=== PATIENT | female | born 1990 | race Caucasian/White ===

== ENCOUNTER 2024-09-27 13:28 | Outpatient (AMB) | payer OTHER, SELFPAY ==
[2024-09-27 13:33] VITALS: BP 98/64; PULSE 79; RESP 16; TEMP 37; O2SAT 99; BMI 24.7
--- NOTE | 2024-09-27 13:33 | A.OFFPC_ITS ---
Vital Signs 09/27/24 13:33 Height 5 ft 4 in Weight 144 lb 3.2 oz BMI 24.7 BP 98/64 Blood Pressure Location Lt brachial Position Sitting Respiration 16 Pulse 79 Pulse Source Pulse Oximeter Temp 98.6 F Temp Source Oral Pulse Oximetry (%) 99 Oxygen Delivery Method Room Air Intake Visit Reasons: WEIGHER OPERATOR establish care Intake Note: Patient is a new patient here to establish care. Transferring care from [facility] in [place], [place]. Medical records have not been requested and have not been received. Analytical Sciences Director Required: No Accompanied by: Partner Allergies Penicillins Allergy (Unknown, Verified 09/27/24 13:52) Hives Sulfa (Sulfonamide Antibiotics) Allergy (Unknown, Verified 09/27/24 13:52) Hives Medication List - Last Reconciled 09/27/24 by EL Moody No Known Home Meds Tobacco use date assessed: 09/27/24 Dental Screening Dental Screen Date: 09/27/24 Did you have a dental visit in the last 12 months?: Yes Did you have a dental problem in the last 6 months where you did not have access to dental care?: No Was dental information given to patient?: Patient has dentist HPI WEIGHER OPERATOR establish care HPI Details Previous PCP:[facility] in [place], [place] Last visit: Last PE: About years ago Specialist: RADHAGYN: needs a referral Past medical history: Eating disorder, bulimia and anorexia, bipolar, Surgical Hx: Medications: Family HX: Problem: The patient is a 33-year-old female presenting with hip pain. The pain is located in the lower abdomen near the pelvic area and is linked to slow transit constipation, causing significant discomfort and sometimes requiring dietary adjustments to manage the symptoms. Per the patient health records, she had a copper IUD that was placed in 2015 and was removed in 2019. Ever since, the patient has been experiencing pelvic pain that she felt like coincides with ov ulation. Will place on OBGYN referral and order a KUB to further evaluate. The patient has been diagnosed with obsessive-compulsive disorder (OCD) and attention-deficit/hyperactivity disorder (ADHD), and is currently working with a therapist to explore treatment options, including medication. Reports that she is looking for psychiatrist, she reached out to service [facility] and the she looking for groups OCD. A previous diagnosis of bipolar disorder was managed with lamotrigine, which was discontinued due to adverse effects, resulting in improved sleep patterns. The patient reports that her currently therapist Aleida does not belief that she had bipolar and help her to titrate of the medication. The patient has a history of anorexia, now in remission, and experiences premenstrual dysphoric disorder (PMDD), affecting her mood pre-menstrually. A family history of skin cancer necessitates a dermatology referral for preventative screening. Right lower abdomen patient, closed to the right groin area, was ruled to be related to slow transit time and her stool is backing up. Reports taking miralax every day. Been working with therapist over year, Aleida Content from [facility]. Have not seen a psychiatrist for several years. [facility] Medical History (Updated 10/22/24 @ 22:18 by EL Moody) PMDD (premenstrual dysphoric disorder) Anorexia Bulimia Bipolar 2 disorder Surgical History No pertinent past surgical history Family History Mother Lymphoma Thyroid cancer Skin cancer Other FH: mental illness FHx: obesity FHx: type 2 diabetes mellitus Family history of substance abuse Social History Household Members: Significant Other Housing: Apartment Alcohol intake: never Patient Tobacco Use Status: Never used Tobacco e-Cigarette/Vaping Use: Currently Using Substance Use Type: Marijuana service: No Current occupational status: unemployed Cognitive needs: No Hearing needs: No Vision needs: No Female Reproductive History Menstrual Age of Menarche: 11 Duration of menses: 3-5 days Date of last menstrual period: 09/16/24 control method: none Questionnaire PHQ-9 Over the last 2 weeks, how often have you been bothered by any of the following problems? 1. Little interest or pleasure in doing things: several days 2. Feeling down, depressed, or hopeless: several days 3. Trouble falling or staying asleep, or sleeping too much: not at all 4. Feeling tired or having little energy: several days 5. Poor appetite or overeating: not at all 6. Feeling bad about yourself - or that you are a failure or have let yourself or your family down: several days 7. Trouble concentrating on things, such as reading the newspaper or watching television: nearly every day 8. Moving or speaking so slowly that other people could have noticed. Or the opposite - being so fidgety or restless that you have been moving around a lot more than usual: not at all 9. Thoughts that you would be better off or of hurting yourself in some way: not at all Total score: 7 Depression Screening Interpretation: Positive Depression Screening Done: Yes 07701 - PHQ-9 Billing: Yes Source: Developed by Drs. Ap Stark, Susanna Nelson, Kirill Whittington and colleagues, with an educational wanda from [employer]. Thrive Questionnaire Date Thrive assessed: 09/27/24 I am a: Patient What is your living situation today?: I have a steady place to live Within the past 12 months, did the food you bought not last and you didn't have the money to get more?: Never true Within the past 12 months, did you worry whether your food would run out before you got money to buy more?: Never true Do you have trouble paying for medicines?: No Do you have trouble getting transportation to medical appointments?: No Do you have trouble paying your heating and electricity bill?: No Do you have trouble taking care of your child, family member or friend?: No Do you have trouble with day-to-day activities such as bathing, preparing meals, shopping, managing finances, etc.?: No Are you currently unemployed and looking for a job?: No Are you interested in more education?: No Please select the resources that you would like help with: None Currently or been in a relationship where the following occur: No concerns reported THRIVE Score: 0 AUDIT C Alcohol Use Questionnaire (AUDIT-C) 1. How often do you have a drink containing alcohol?: Never Total Score: 0 Score Reviewed/Action Taken: No JAMIR-7 AMB Questionnaire JAMIR-7 Date JAMIR - 7 assessed: 09/27/24 Feeling nervous, anxious, or on edge: 3 = Nearly every day Not being able to stop or control worryin = Nearly every day Worrying too much about different things: 1 = Several days Trouble relaxin = Several days Being so restless that it is hard to sit still: 0 = Not at all Becoming easily annoyed or irritable: 1 = Several days Feeling afraid as if something awful might happen: 3 = Nearly every day Total JAMIR-7 score (0-4 normal; 5-9 mild; 10-14 moderate; 15-21 severe): 12 Source: Developed by Drs. Ap Stark, Susanna Nelson, Kirill Whittington and colleagues, with an educational wanda from [employer]. JAMIR-7 Assessment Billing JAMIR-7 Assessment Tool: JAMIR-7 Assessment 14315 Review of Systems Const Denies headache(s) Eyes Denies loss of vision ENT Denies vertigo, Denies dizziness, Denies headache(s) and Denies sore throat Card Denies chest pain, Denies leg edema and Denies lightheadedness Resp Denies cough, Denies hemoptysis and Denies wheezing GI Reports abdominal pain (right lower quadrant), Denies melena, Reports constipation, Denies diarrhea and Denies vomiting Denies urinary frequency, Denies dysuria and Denies urinary urgency Musc Denies arthralgias, Denies joint swelling, Denies numbness and Denies tingling Neuro Denies Abnormal speech present, Denies behavioral changes, Denies vertigo, Denies dizziness, Denies headache(s), Denies loss of vision, Denies memory loss, Denies numbness and Denies tingling Psych Denies anxiety, Denies behavioral changes, Denies depression, Denies memory loss and Denies panic attacks Osito/Lymph Denies easy bleeding and Denies easy bruising Aller/Immun Denies wheezing Physical exam (Primary Care) Vital Signs: Last Vital Signs Temp 98.6 F 09/27/24 13:33 Pulse 79 09/27/24 13:33 Resp 16 09/27/24 13:33 BP 98/64 09/27/24 13:33 Pulse Ox 99 09/27/24 13:33 Oxygen Delivery Method Room Air 09/27/24 13:33 BMI result Body Mass Index 24.7 Tobacco/Smoking Status: Tobacco use Status Tobacco use date assessed 09/27/24 09/27/24 13:50 Patient Tobacco Use Status Never used Tobacco 09/27/24 13:50 e-Cigarette/Vaping Use Currently Using 09/27/24 13:50 PHQ-9: PHQ-9 Score PHQ-9: Total score 7 10/22/24 13:36 Depression Screening Interpretation: Positive Thrive Assessment: Date of Thrive Assessment Date Thrive assessed 09/27/24 09/27/24 13:50 Currently or been in a relationship where the following occur: No concerns reported Const General: healthy appearing, no acute distress, alert and awake Nutritional Appearance: well nourished Orientation/consciousness: oriented to person, oriented to place and oriented to time HENMT Ears: TM's normal bilaterally General nose exam: Normal nasal mucous membranes and turbinates present Eyes Conjunctivae: conjunctivae normal Sclerae: sclerae normal Pupils: Equal, round and reactive pupils present Neck Neck: Yes no lymphadenopathy and Yes no JVD Thyroid: Thyroid normal Carotids: no bruits Resp Effort & Inspection: normal respiratory effort and not tachypneic Auscultation: no crackles, no rales, no rhonchi and no wheezes Cardio Rate: regular rate Rhythm: regular rhythm Heart sounds: no murmurs and normal S1 and S2 GI Palpation (GI): Soft to palpation, Tenderness to palpation present (GI) in the RLQ (close to right groin area), no hepatomegaly and no splenomegaly Auscultation: normal bowel sounds General: Yes no CVA tenderness Back/Spine/Pelvis Back: no CVA tenderness Skin General skin exam: no rashes or lesions noted and dry skin Neuro General: oriented to person, oriented to place and oriented to time Cranial nerves: Yes Equal, round and reactive pupils present Speech: No Abnormal speech present Gait exam (Neuro): Normal gait present Motor exam (neuro): no tremor noted Extrem Right upper extremity: full ROM Left upper extremity: full ROM Right lower extremity: full ROM; no edema Left lower extremity: full ROM; no edema Psych Mental Status: mental status grossly normal Speech and movement: Normal speech and movement present Affect: normal affect Attitude: cooperative Thought process: Normal thought process present Coding Level of Care Code New Pt Level 3 (80832) Diagnoses Family history of skin cancer Z80.8 Right lower quadrant abdominal pain R10.31 Abdominal location: right lower quadrant Attention deficit hyperactivity disorder (ADHD), unspecified ADHD type F90.9 Attention deficit-hyperactivity disorder type: unspecified Bipolar 2 disorder F31.81 Slow transit constipation K59.01 Constipation type: slow transit constipation Additional Codes JAMIR-7 Assessment Billing - JAMIR-7 Assessment Tool: JAMIR-7 Assessment 79660 ([id number]) PHQ-9 - 06136 - PHQ-9 Billing: Yes ([id number]) Time Spent (min) 35 Assessment & Plan Assessment & Plan (1) Family history of skin cancer: Code(s): Z80.8 - Family history of malignant neoplasm of other organs or systems Category: Medical Plan: Dermatology referral placed (2) Abdominal pain: Code(s): R10.9 - Unspecified abdominal pain Category: Medical Qualifiers: Abdominal location: right lower quadrant Qualified Code(s): R10.31 - Right lower quadrant pain Plan: Patient reports that pain started after her IUD was removed. Reports a KUB showed stool burden due to low transit and it was suspected that this, plus possibly scar tissue from the IUD removal was causing her pain in the right lower abdomen. KUB ordered. The patient would like to be referred to GI. An obgyn referral was placed to rule out this possibility. (3) ADHD: Code(s): F90.9 - Attention-deficit hyperactivity disorder, unspecified type Category: Medical Qualifiers: Attention deficit-hyperactivity disorder type: unspecified Qualified Code(s): F90.9 - Attention-deficit hyperactivity disorder, unspecified type Plan: The patient reports that she is actively looking for psychiatrist. She is currently awaiting for a return call. She is also looking of OCD group to be a part of. (4) Bipolar 2 disorder: Code(s): F31.81 - Bipolar II disorder Category: Medical Plan: The patient reports that she used to be on lamotrigine 100mg daily and was able to be successfully weaned off this medication. (5) Constipation: Code(s): K59.00 - Constipation, unspecified Category: Medical Qualifiers: Constipation type: slow transit constipation Qualified Code(s): K59.01 - Slow transit constipation Plan: The patient reports that this has been better. She reports using miralax daily with positive effect Orders: Orders Complete Blood Count Auto Diff 09/27/24 Z00.00 - Encounter for general adult medical examination without abnormal findings Lipid Panel 09/27/24 Z00.00 - Encounter for general adult medical examination without abnormal findings TSH reflex Free T4 09/27/24 Z00.00 - Encounter for general adult medical examination without abnormal findings Vitamin D 25-OH Total 09/27/24 Z00.00 - Encounter for general adult medical examination without abnormal findings Comprehensive [place]. Panel Fast 09/27/24 Z00.00 - Encounter for general adult medical examination without abnormal findings UA CC w/rflx Micro + Cult 09/27/24 Z00.00 - Encounter for general adult medical examination without abnormal findings
--- OUTSIDE RECORDS SUMMARY | 2024-09-27 14:39 | XMS_ITS | Clinical Summary ---
Author Organization [facility] Address [address] [place] [address] Care Team Providers Care Cuff Folder Name Role Phone Unavailable Primary Care Provider Unavailabl e Source Comments PLEASE NOTE, if this patient is a minor, it may be UNLAWFUL to discuss sensitive information that is contained in these records (such as FAMILY PLANNING, MENTAL HEALTH or SUBSTANCE ABUSE) with the minor patient's parent or other person without the patient's specific authorization.[facility] Allergies Active Allergy Reactions Criticality Noted Date Comments Cephalosporins Rash Low 09/03/2022 Penicillin Rash Low 09/03/2022 Penicillin G Hives 09/17/2022 Sulfa (Sulfonamide Antibiotics) 08/10 Medications No known medications Social History Tobacco Use Types Packs/Day Years Used Date Smoking Tobacco: Never Smokeless Tobacco: Never Tobacco Cessation:Counseling Given: Not Answered Social Connections Answer Date Recorded Connectedness 0 12/24/2023 Financial Resource Strain Answer Date R ecorded Financial Resource Strain 0 2022 Stress Answer Date Recorded Stress 0 09/09/2022 Physical Activity Answer Date Recorded Physical Activity 0 09/09/2022 Food Insecurity Answer Date Recorded Food 0 01/05/2024 Transportation Needs Answer Date Record ed Transportation 0 09/09/2022 Housing Stability Answer Date Recorded Housing 0 09/09/2022 Safety and Environment Answer Date Rodrigo rded Safety 0 09/09/2022 Utilities Answer Date Recorded Utilities 0 09/09/2022 Employment Answer Date Recorded Stress 0 12/24/2023 Comments Unknown Sex and Gender Information Value Date Recorded Sex Assigned at Not on file Legal Sex Female 9:55 AM PDT Gender Identity Not on file Sexual Orientation Not on file Last Filed Vital Signs Vital Sign Reading Time Taken Comments Blood Pressure 99/61 10/07/2023 10:04 AM PDT Pulse 66 10/07/2023 10:04 AM PDT Temperature - - Respiratory Rate - - Oxygen Saturation - - Inhaled Oxygen Concentration - - Weight - - Height - - Body Mass Index - - Plan of Treatment Health Maintenance Due Date Last Done Comments Anxiety Screening 1988 Dental Perio Charting 1988 Diabetes Screening 1988 HPV Screening 1988 Hepatitis C Screening 1988 Pap + HPV 1988 HIV Screening 12/08/2003 Relationship Safety Screening/Counseling 12/08/2003 Imm-DTaP/Tdap/Td (1 - Tdap) 12/08/2007 Imm-Hepatitis B (1 of 3 - 19 + 3-dose series) 12/08/2007 Cervical Cancer Screening 2009 Pap Smear 2009 Syphilis Screening 04/12/2020 [id number] ( season) 2023 Alcohol and Drug Screen 04/11/2024 Depression Annual Screen 04/11/2024 Tobacco Screening 09/22/2024 09/23/2023 Dental BW 09/24/2024 09/23/2023, 09/09/2022 Dental Examination 09/24/2024 09/23/2023, 09/09/2022 Dental Prophy 10/08/2024 10/07/2023 Imm-Influenza (Season Ended) 2024 Hypertension Screening (#1) 10/06/2026 Dental FMX/Pano 09/24/2028 09/23/2023 Cervical Ablation/Cold-Knife Conization Discontinued Cervical Cryotherapy Discontinued Colposcopy Discontinued Endometrial Biopsy Discontinued Excision/Leep Discontinued HPV Genotyping Discontinued Vaginal Pap Discontinued Vulvoscopy Discontinued Procedures Procedure Name Priority Date/Time Associated Diagnosis Comments PROPHYLAXIS - ADULT Routine 10/07/2023 1 0:00 AM PDT Visit for dental examination PANORAMIC RADIOGRAPHIC IMAGE Routine 09/23/2023 3:15 PM PDT Visit for dental examination BITEWINGS - FOUR RADIOGRAPHIC IMAGES Routine 09/23/2023 3:15 PM PDT Visit for dental examination PERIODIC ORAL EVALUATION ESTABLISHED PATIENT Routine 09/23/2023 3:15 PM PDT Visit for dental examination from Last 3 Months or Most Recently Relevant to Health Maintenance Insurance [place]ID [place] DENTAL Member Subscriber Plan / Payer (Ef fective 2022-Present) Name:Lyn Yadav Relation to Subscriber:Self Name:Lyn Yadav Payer ID:[id number] Group ID:[id number] Type:Medicaid non[place] Address: [address] [address]
== END 2024-09-27 14:34 | disposition home or self-care (01) ==
LOC: HO.HMCH 13:28
DX: Z80.8 Family history of malignant neoplasm of other organs or systems (principal); R10.31 Right lower quadrant pain; F90.9 Attention-deficit hyperactivity disorder, unspecified type; F31.81 Bipolar II disorder; K59.01 Slow transit constipation

== ENCOUNTER → 2024-09-27 13:28 | Outpatient (BNVA) | payer OTHER, SELFPAY | DX: M25.551 Pain in right hip (principal); R10.2 Pelvic and perineal pain; F42.9 Obsessive-compulsive disorder, unspecified; F90.9 Attention-deficit hyperactivity disorder, unspecified type; F31.81 Bipolar II disorder; R10.31 Right lower quadrant pain; K59.01 Slow transit constipation; Z80.8 Family history of malignant neoplasm of other organs or systems | CPT/HCPCS: 96127; 99202 ==

== ENCOUNTER 2024-10-26 10:54 | Outpatient (REF) | payer OTHER, SELFPAY ==
--- NOTE | ~2024-10-26 | XR_ITS ---
EXAMINATION: XR ABDOMEN KUB CLINICAL INDICATION: R10.9 - Unspecified abdominal pain COMPARISON: None available. TECHNIQUE: AP view of the abdomen. FINDINGS: The bowel gas pattern is normal with no evidence of ileus or obstruction. Calcification right hemipelvis is likely a phlebolith. Moderate stool in colon obscures the kidneys. XR/XR KUB IMPRESSION: Unremarkable examination. Electronically signed by: Lizandro Bird MD 10/26/2024 11:49 AM EDT
[2024-10-26 11:14] LABS: MANUAL DIFF FLAG NO
--- OUTSIDE RECORDS SUMMARY | 2024-10-26 11:31 | XMS_ITS | Clinical Summary ---
Author Organization [facility] Address [address] [place] [address] Care Team Providers Care Almond Paste Molder Name Role Phone Unavailable Primary Care Provider [...] C Screening 1988 Pap + HPV 1988 Tobacco Screening 1988 HIV Screening 12/08/2003 Relationship Safety Screening/Counseling 12/08/2003 Imm-DTaP/Tdap/Td (1 - Tdap) 12/08/2007 Imm-Hepatitis B (1 of 3 - 19 + 3-dose series) 12/08/2007 Cervical Cancer Screening 2009 Pap Smear 2009 Syphilis Screening 04/12/2020 [id number] ( season) 2023 Alcohol and Drug Screen 04/11/2024 Depression Annual Screen 04/11/2024 Dental BW 09/24/2024 09/23/2023, 09/09/2022 Dental Examination 09/24/2024 09/23/2023, 09/09/2022 Dental Prophy 10/08/2024 10/07/2023 Imm-Influenza (#1) 2024 Hypertension Screening (#1) 10/06/2026 Dental FMX/Pano [...] Yadav Relation to Subscriber:Self Name:Lyn Yadav Payer ID:[id number] Group ID:[id number] Type:Medicaid non-[place] Address: [facility] [address] [place] [address]
--- OUTSIDE RECORDS SUMMARY | 2024-10-26 11:31 | XMS_ITS | Encounter Summary ---
Author Organization [facility] Address [address] [place] [id number] Phone Care Team Providers Care Hydroblaster Name Role Phone Pcp, Unknown Primary Care Provider Unavailabl Vadim Tubbs FIXING MACHINE OPERATOR Primary Care Provider Pcp, Unknown Unavailable Unavailable Encounter Details Date Type Department Care Team (Late st Contact Info) Description 04/01/2024 Procedure Pass [facility], Ct Scan - [address] [address] Social History Tobacco Use Types Packs/Day Years Used Date Smoking Tobacco: Never Smokeless Tobacco: Never Alcohol Use Standard Drinks/Week Comments Not Currently 0 (1 standard drink = 0.6 oz pur e alcohol) Intimate Partner Violence Answer Date R ecorded Are you denied basic needs s uch as food, clothing, or medical care? No 04/01/2024 In the past 12 months have y ou been in a relationship with a person who hurts, threatens, or tries to control you? No 04/01/2024 Are you denied basic needs s uch as food, clothing, or medical care? No 04/01/2024 In the past 12 months have y ou been in a relationship with a person who hurts, threatens, or tries to control you? No 04/01/2024 Comments Unknown Sex and Gender Information Value Date Recorded Sex Assigned at Female 10/23/2024 3:06 PM EDT Legal Sex Female 3:06 PM EDT Gender Identity Non-binary 10/23/2024 3:06 PM EDT Sexual Orientation Queer 10/23/2024 3: 06 PM EDT documented as of this encounter Functional Status * Calculated C-SSRS Risk Score (Lifetime/Recent) Answer Date of Assessment Author No Risk Indicated 04/01/2024 5:20 PM Kim Mcgee, BENJAMÍN * [place] Suicide Severity Rating Scale (Screener/Recent Self-Report) Question Answer Date of Assessment Author 1. Wish to be (Past 1 Month) No 024 5:20 PM Kim Apodaca, RN 2. Non-Specific Active Suici ashley Thoughts (Past 1 Month) No 04/01/2024 5:20 PM Kim Apodaca, RN 6. Suicidal Behavior (Lifetime) No 4 5:20 PM Kim Apodaca, BENJAMÍN documented as of this encounter Plan of Treatment Not on file documented as of this encounter Visit Diagnoses Not on filedocumented in this encounter Care Teams Hydroblaster Relationship Specialty Start Date End Date Pcp, Unknown PCP - General 04/01/24 10/22/24 Vadim Nielsen NP [address] [place] [address] [address] [place] [address] PCP - General Nurse Practitioner 10/23/24 Pcp, Unknown 10/23/24 documented as of this encounter Additional Source Comments The information contained in this document represents components of the legal health record. It is not the complete legal health record.[facility]
[2024-10-26 11:40] LABS: Hematocrit 40.3 % (37.0-47.0); Hemoglobin 13.2 g/dl (12.0-16.0); Imm Gran Abs Auto 0.01 X10*3/uL (0.00-0.03); Imm Gran Pct Auto 0.2 % (0.0-0.4); Lymphocytes Absolute Auto 2.2 X10*3/uL (1.2-4.9); Mean Corpuscular HGB Conc 32.8 g/dl (31.0-35.0); Mean Corpuscular Hemoglobin 28.6 pg (27.0-33.0); Mean Corpuscular Volume 87.4 fL (80.0-98.0); NRBC Abs Auto 0.000 X10*3/uL (0.0-0.012); NRBC Pct Auto 0.0 /100WBC (0.0-0.2); Platelet Count 336 X10*3/uL (160-400); Red Blood Count 4.61 X10*6/uL (4.20-5.50); White Blood Count 5.8 X10*3/uL (4.8-10.8)
[2024-10-26 11:47] LABS: Appearance Urine Clear; Glucose Urine UA Negative (Negative); PH 6.0 (5.0-9.0); Specific Gravity - Urine <= 1.005 (1.005-1.025)
[2024-10-26 12:27] LABS: Alanine Aminotransferase 20 U/L (0-31); Albumin Level 5.0 g/dL (3.5-5.0); Alkaline Phosphatase 57 U/L (39-117); Anion Gap 12 (12-20); Aspartate Amino Transferase 20 U/L (5-31); Blood Urea Nitrogen 12 mg/dL (9-16); Calcium 9.1 mg/dL (8.4-10.2); Carbon Dioxide 25 mmol/L (22-29); Chloride 107 mmol/L (96-108); Cholesterol 166 mg/dL (<200); Estimated Glomerular Filt Rate > 60; HDL Cholesterol 66 mg/dL (>40); Potassium 4.4 mmol/L (3.3-5.1); Sodium 140 mmol/L (135-145); Total Protein 7.9 g/dL (6.5-8.0); Triglycerides 60 mg/dL (<150)
== END 2024-10-26 10:55 | disposition home or self-care (01) ==
LOC: HO.XRAY 10:54
DX: Z00.00 Encounter for general adult medical examination without abnormal findings (principal); R10.9 Unspecified abdominal pain
CPT/HCPCS: 36415; 74018; 80053; 80061; 81003; 82306; 84443; 85025

== ENCOUNTER → 2024-10-26 11:19 | Outpatient (BNV) | payer OTHER, SELFPAY | PROVIDERS: Visit Provider Radiology Diagnostic Radiology | DX: R10.9 Unspecified abdominal pain (principal) | CPT/HCPCS: 74018 ==

== ENCOUNTER 2024-10-31 08:33 | Outpatient (AMB) | payer OTHER, SELFPAY ==
--- NOTE | 2024-10-31 08:37 | A.OFFVIS_ITS ---
Vital Signs 10/31/24 08:38 Height 5 ft 4 in Weight 140 lb BMI 24.0 BP 110/74 Blood Pressure Location Lt brachial Position Sitting Pulse 70 Pulse Source Pulse Oximeter Pulse Oximetry (%) 99 Oxygen Delivery Method Room Air Intake Visit Reasons: abdominal pain KUB on 10/26 Intake Note: New pt for initial eval of abd pain. KUB 10/26. CC: C.O. RLQ pain originally, now B/L but still worse on the R side. Intermittent pain x2 years. Severity varies. Pt also complains of constipation + hemorrhoids with increasing frequency. Pt not sure if they will need general surgery consult for the hemorrhoids per their PCP. [employer] Tech Required: No Accompanied by: Self / Same As Patient Allergies Penicillins Allergy (Unknown, Verified 10/31/24 08:37) Hives Sulfa (Sulfonamide Antibiotics) Allergy (Unknown, Verified 10/31/24 08:37) Hives HPI HPI abdominal pain KUB on 10/26: Details: 33-year-old female with past medical history ADHD, abdominal pain, family history of skin cancer, constipation, bipolar disorder is here today for initial consultation the patient is accompanied here by her partner. Patient reports that her symptoms began about couple years ago or so. Patient is vegan. She reports that she is eating mostly vegetable and for protein she is eating legumens. Patient reports constipation and bloating. KUB was ordered by PCP and showed large amount of stool in her colon. Patient also reports hemorrhoids, states that they are active right now she is sitting on a donut pillow that she brought with her. Patient states that her PCP was thinking about referring her to General surgery about addressing her hemorrhoids. Patient reports that sometimes she feels very uncomfortable. Patient reports that she has pain in the right lower quadrant. Pain is usually worse at night time. Patient denies melena, hematochezia, unintentional weight loss or ribbon like stools. Patient denies any dyspepsia, dysphagia or odynophagia. [facility] Medical History PMDD (premenstrual dysphoric disorder) Anorexia Bulimia Bipolar 2 disorder Surgical History (Updated 10/31/24 @ 08:41 by ABY Jones) [place] teeth extracted No pertinent past surgical history Family History Mother Lymphoma Thyroid cancer Skin cancer Other FH: mental illness FHx: obesity FHx: type 2 diabetes mellitus Family history of substance abuse Social History Household Members: Significant Other Housing: Apartment Alcohol intake: never Patient Tobacco Use Status: Never used Tobacco e-Cigarette/Vaping Use: Currently Using Substance Use Type: Marijuana service: No Current occupational status: unemployed Cognitive needs: No Hearing needs: No Vision needs: No Female Reproductive History Menstrual Age of Menarche: 11 Review of Systems Const Denies weight gain and Denies weight loss ENT Reports no additional complaints, Denies dysphagia and Denies odynophagia Card Reports no additional complaints Resp Reports no additional complaints GI Reports abdominal pain (RLQ), Denies belching, Denies melena, Denies bloating, Denies change in bowel habits, Reports constipation, Denies dysphagia, Denies excessive flatus, Denies dyspepsia, Denies heartburn, Denies diarrhea, Denies loose stools, Denies nausea, Denies odynophagia and Denies vomiting Reports no additional complaints Musc Reports no additional complaints Neuro Reports no additional complaints Psych Reports no additional complaints Endo Reports no additional complaints Physical Exam Vital Signs: Last Vital Signs Pulse 70 10/31/24 08:38 BP 110/74 10/31/24 08:38 Pulse Ox 99 10/31/24 08:38 Oxygen Delivery Method Room Air 10/31/24 08:38 BMI result Body Mass Index 24.0 Const General: healthy appearing, no acute distress and well developed Nutritional Appearance: well nourished Orientation/consciousness: patient oriented x3 Resp Effort & Inspection: normal respiratory effort, able to speak in complete sentences, no tracheal deviation and symmetric chest movement Auscultation: clear to auscultation bilaterally Cardio Rate: regular rate GI Inspection: Yes normal to inspection and No distended Palpation (GI): Soft to palpation, not firm, nontender and No hepatosplenomegaly present Auscultation: normal bowel sounds General: Yes no CVA tenderness Back/Spine/Pelvis Back: no CVA tenderness Skin General skin exam: elasticity normal, turgor normal and dry skin Neuro General: patient oriented x3 Psych Appearance: grossly normal Mental Status: mental status grossly normal Results Reviewed Results Reviewed: KUB 10/26/2024 FINDINGS: The bowel gas pattern is normal with no evidence of ileus or obstruction. Calcification right hemipelvis is likely a phlebolith. Moderate stool in colon obscures the kidneys. Assessment & Plan Assessment & Plan (1) Constipation: Code(s): K59.00 - Constipation, unspecified Category: Medical Qualifiers: Constipation type: slow transit constipation Qualified Code(s): K59.01 - Slow transit constipation (2) Abdominal pain: Code(s): R10.9 - Unspecified abdominal pain Category: Medical Qualifiers: Abdominal location: right lower quadrant Qualified Code(s): R10.31 - Right lower quadrant pain (3) Hemorrhoid: Code(s): K64.9 - Unspecified hemorrhoids Qualifiers: Hemorrhoid type: unspecified Qualified Code(s): K64.9 - Unspecified hemorrhoids Plan Referral to General surgery. Patient will walk over and make appointment. Patient will increase fiber try a low FODMAP diet. Possible if patient is not emptying her bowels well her pain could be related to gas trapping pain from all the legumens she is eating. Will send her script for simethicone to help. Use hydrocortisone. Sitz baths recommended. I will see patient in 3 months, sooner on as needed basis. She is agreeable to this plan and verbalizes understanding of instructions. She was given the opportunity to ask questions and all questions answered. Thank you for allowing me to participate in her care Orders: Referrals General Surgery Referral K64.9 - Unspecified hemorrhoids Medications: New simethicone (Gas Relief (simethicone)) 125 mg PO BID-TID PRN 90 tabs 3RF abdominal distention Coding Level of Care Code New Pt Level 4 (86408) Diagnoses Slow transit constipation K59.01 Constipation type: slow transit constipation Right lower quadrant abdominal pain R10.31 Abdominal location: right lower quadrant Hemorrhoids, unspecified hemorrhoid type K64.9 Hemorrhoid type: unspecified Time Spent (min) 45 Comment 35 minutes spent with patient and additional 10 minutes spent reviewing her records
[2024-10-31 08:38] VITALS: BP 110/74; PULSE 70; O2SAT 99; BMI 24.0
--- OUTSIDE RECORDS SUMMARY | 2024-10-31 08:49 | XMS_ITS | Encounter Summary ---
Author Organization [facility] Address [address] [place] [id number] Phone Care Team Providers Care Transfer And Pumphouse Operator Chief Name Role Phone Pcp, Unknown Primary Care Provider Unavailabl Vadim Tubbs RISK ENGINEER Primary Care Provider Pcp, Unknown Unavailable Unavailable Encounter Details Date Type Department Care Team (Late st Contact Info) Description 04/01/2024 Procedure Pass [facility], Ct Scan - [address] [address] Social History Tobacco Use Types Packs/Day Years [...] 04/01/2024 5:20 PM Kim Mcgee, BENJAMÍN * [place] Suicide Severity Rating Scale (Screener/Recent Self-Report) Question [...] on filedocumented in this encounter Care Teams Transfer And Pumphouse Operator Chief Relationship Specialty Start Date End Date Pcp, Unknown PCP - General 04/01/24 10/22/24 Vadim Nielsen NP [address] [place] [address] [address] [place] [address] PCP - General Nurse Practitioner 10/23/24 Pcp, Unknown 10/23/24 documented as of this encounter Additional Source Comments The information contained in this document represents components of the legal health record. It is not the complete legal health record.[facility]
--- OUTSIDE RECORDS SUMMARY | 2024-10-31 08:49 | XMS_ITS | Clinical Summary ---
Author Organization [facility] Address [address] [place] [address] Care Team Providers Care Marker Machine Attendant Name Role Phone Unavailable Primary Care Provider [...] 2009 Pap Smear 2009 Syphilis Screening 04/12/2020 [id number] ( season) 2023 Alcohol and Drug Screen [...] Yadav Relation to Subscriber:Self Name:Lyn Yadav Payer ID:[id number] Group ID:[id number] Type:Medicaid non-[place]P Address: [facility] [address] [place] [address]
== END 2024-10-31 09:19 | disposition home or self-care (01) ==
LOC: HO.HGI 08:34
PROVIDERS: Visit Provider Nurse Practitioner Family
DX: K59.01 Slow transit constipation (principal); R10.31 Right lower quadrant pain; K64.9 Unspecified hemorrhoids
CPT/HCPCS: 99204

== ENCOUNTER 2024-11-27 14:34 | Outpatient (AMB) | payer OTHER, SELFPAY ==
[2024-11-27 14:42] VITALS: BP 102/66; PULSE 64; RESP 18; O2SAT 96; BMI 24.1
--- NOTE | 2024-11-27 14:42 | A.OFFPC_ITS ---
Vital Signs 11/27/24 14:42 Height 5 ft 4 in Weight 140 lb 6 oz BMI 24.1 BP 102/66 Blood Pressure Location Lt brachial Position Sitting Respiration 18 Pulse 64 Pulse Source Pulse Oximeter Temp Source Temporal Artery Scan Pulse Oximetry (%) 96 Oxygen Delivery Method Room Air Intake Visit Reasons: pe Rose Grower Required: No Accompanied by: Boyfriend Allergies Penicillins Allergy (Unknown, Verified 11/27/24 15:35) Hives Sulfa (Sulfonamide Antibiotics) Allergy (Unknown, Verified 11/27/24 15:35) Hives Medication List - Last Reconciled 11/27/24 by EL Moody atomoxetine 25 mg PO DAILY hydrocortisone 2.5% appl topical DAILY semaglutide 0.25 mg subcut QWEEK simethicone (Gas Relief (simethicone)) 125 mg PO BID-TID PRN Tobacco use date assessed: 11/27/24 Dental Screening Dental Screen Date: 11/27/24 Did you have a dental visit in the last 12 months?: Yes Did you have a dental problem in the last 6 months where you did not have access to dental care?: No Was dental information given to patient?: Patient has dentist HPI pe HPI Details Dentist: UP to date Eye:Reports that she needs to schedule an eye exam Snellen: Right: Left: Corrected vision: reading glasses STI screening:n/a Colonoscopy:n/a Pap Smer: She is waiting to be connected with obgyn PHQ-9: Flu: up to date COVID: x2 Tdap:Reports having this within 5 years ago after going back to school Diet:Low fabmap diet Exercise: Reports that she is starting to walk again; she used to exercise a lot The patient is a 33-year-old female presenting for a routine wellness visit and management of gastrointestinal symptoms. The patient reports a history of gastrointestinal discomfort, primarily characterized by stomach and intestinal pain, which she attributes to Irritable Bowel Syndrome (IBS). She has been following a low FODMAP diet to manage her symptoms, which has been challenging due to dietary restrictions and the need for meal preparation. Despite these challenges, she notes an improvement in her symptoms when adhering to the diet. The patient has also identified lactose as a potential trigger for her symptoms, particularly when consuming fresh lactose-containing products like mozzarella or cream. She is hopeful that eliminating lactose will further alleviate her symp toms. In terms of preventative care, the patient has received two COVID-19 vaccinations and usually receives the influenza vaccine annually. She recalls receiving a tetanus booster within the last five years. The patient has not had an eye exam in over a year and plans to schedule one soon. [facility] Medical History PMDD (premenstrual dysphoric disorder) Anorexia Bulimia Bipolar 2 disorder Surgical History [place] teeth extracted No pertinent past surgical history Family History Mother Lymphoma Thyroid cancer Skin cancer Other FH: mental illness FHx: obesity FHx: type 2 diabetes mellitus Family history of substance abuse Social History Household Members: Significant Other Housing: Apartment Alcohol intake: never Patient Tobacco Use Status: Never used Tobacco e-Cigarette/Vaping Use: Currently Using Substance Use Type: Marijuana service: No Current occupational status: unemployed Cognitive needs: No Hearing needs: No Vision needs: No Female Reproductive History Menstrual Age of Menarche: 11 Questionnaire PHQ-9 Over the last 2 weeks, how often have you been bothered by any of the following problems? 1. Little interest or pleasure in doing things: several days 2. Feeling down, depressed, or hopeless: several days 3. Trouble falling or staying asleep, or sleeping too much: not at all 4. Feeling tired or having little energy: several days 5. Poor appetite or overeating: several days 6. Feeling bad about yourself - or that you are a failure or have let yourself or your family down: several days 7. Trouble concentrating on things, such as reading the newspaper or watching television: several days 8. Moving or speaking so slowly that other people could have noticed. Or the opposite - being so fidgety or restless that you have been moving around a lot more than usual: not at all 9. Thoughts that you would be better off or of hurting yourself in some way: not at all Total score: 6 Source: Developed by Drs. Ap Stark, Susanna Nelson, Kirill Whittington and colleagues, with an educational wanda from [employer]. Thrive Questionnaire Date Thrive assessed: 11/27/24 I am a: Patient What is your living situation today?: I have a steady place to live Within the past 12 months, did the food you bought not last and you didn't have the money to get more?: Never true Within the past 12 months, did you worry whether your food would run out before you got money to buy more?: Never true Do you have trouble paying for medicines?: No Do you have trouble getting transportation to medical appointments?: No Do you have trouble paying your heating and electricity bill?: No Do you have trouble taking care of your child, family member or friend?: No Do you have trouble with day-to-day activities such as bathing, preparing meals, shopping, managing finances, etc.?: No Are you currently unemployed and looking for a job?: I choose not to answer this question Are you interested in more education?: I choose not to answer this question Please select the resources that you would like help with: None Currently or been in a relationship where the following occur: No concerns reported THRIVE Score: 0 AUDIT C Alcohol Use Questionnaire (AUDIT-C) 1. How often do you have a drink containing alcohol?: 2-4 times a month 2. How many drinks containing alcohol do you have on a typical day when you are drinking?: 1 or 2 3. How often do you have six or more drinks on one occasion?: Never Total Score: 2 JAMIR-7 AMB Questionnaire JAMIR-7 Date JAMIR - 7 assessed: 11/27/24 Feeling nervous, anxious, or on edge: 1 = Several days Not being able to stop or control worryin = More than half the days Worrying too much about different things: 2 = More than half the days Trouble relaxin = More than half the days Being so restless that it is hard to sit still: 0 = Not at all Becoming easily annoyed or irritable: 1 = Several days Feeling afraid as if something awful might happen: 1 = Several days Total JAMIR-7 score (0-4 normal; 5-9 mild; 10-14 moderate; 15-21 severe): 9 Source: Developed by Drs. Ap Stark, Susanna Nelson, Kirill Whittington and colleagues, with an educational wanda from [employer]. Review of Systems Const Denies headache(s) Eyes Denies loss of vision ENT Denies vertigo, Denies dizziness, Denies headache(s) and Denies sore throat Card Denies chest pain, Denies leg edema and Denies lightheadedness Resp Denies cough, Denies hemoptysis and Denies wheezing GI Denies abdominal pain, Denies melena, Denies constipation, Denies diarrhea and Denies vomiting Denies urinary frequency, Denies dysuria and Denies urinary urgency Musc Denies arthralgias, Denies joint swelling, Denies numbness and Denies tingling Neuro Denies Abnormal speech present, Denies behavioral changes, Denies vertigo, Denies dizziness, Denies headache(s), Denies loss of vision, Denies memory loss, Denies numbness and Denies tingling Psych Denies anxiety, Denies behavioral changes, Denies depression, Denies memory loss and Denies panic attacks Osito/Lymph Denies easy bleeding and Denies easy bruising Aller/Immun Denies wheezing Physical exam (Primary Care) Vital Signs: Last Vital Signs Pulse 64 11/27/24 14:42 Resp 18 11/27/24 14:42 BP 102/66 11/27/24 14:42 Pulse Ox 96 11/27/24 14:42 Oxygen Delivery Method Room Air 11/27/24 14:42 BMI result Body Mass Index 24.1 Tobacco/Smoking Status: Tobacco use Status Tobacco use date assessed 11/27/24 11/27/24 14:43 Patient Tobacco Use Status Never used Tobacco 11/27/24 14:43 e-Cigarette/Vaping Use Currently Using 11/27/24 14:43 PHQ-9: PHQ-9 Score PHQ-9: Total score 6 11/28/24 23:41 Thrive Assessment: Date of Thrive Assessment Date Thrive assessed 11/27/24 11/27/24 14:43 Currently or been in a relationship where the following occur: No concerns reported Const General: healthy appearing, no acute distress, alert and awake Nutritional Appearance: well nourished Orientation/consciousness: oriented to person, oriented to place and oriented to time HENMT Ears: TM's normal bilaterally General nose exam: Normal nasal mucous membranes and turbinates present Eyes Conjunctivae: conjunctivae normal Sclerae: sclerae normal Pupils: Equal, round and reactive pupils present Neck Neck: Yes no lymphadenopathy and Yes no JVD Thyroid: Thyroid normal Carotids: no bruits Resp Effort & Inspection: normal respiratory effort and not tachypneic Auscultation: no crackles, no rales, no rhonchi and no wheezes Cardio Rate: regular rate Rhythm: regular rhythm Heart sounds: no murmurs and normal S1 and S2 GI Palpation (GI): Soft to palpation, nontender, no hepatomegaly and no splenomegaly Auscultation: normal bowel sounds Skin General skin exam: no rashes or lesions noted and dry skin Neuro General: oriented to person, oriented to place and oriented to time Cranial nerves: Yes Equal, round and reactive pupils present Speech: No Abnormal speech present Gait exam (Neuro): Normal gait present Motor exam (neuro): no tremor noted Deep tendon reflexes (DTR's): Right triceps reflex intensity grade: 2+, Left triceps reflex intensity grade: 2+, Rt Biceps (C5, C6): 2+, Left biceps reflex intensity grade: 2+, Right brachioradialis reflex intensity grade: 2+, Left brachioradialis reflex intensity grade: 2+, Right patellar reflex intensity grade: 2+ and Left patellar reflex intensity grade: 2+ Extrem Right upper extremity: full ROM Left upper extremity: full ROM Right lower extremity: full ROM; no edema Left lower extremity: full ROM; no edema Psych Mental Status: mental status grossly normal Speech and movement: Normal speech and movement present Affect: normal affect Attitude: cooperative Thought process: Normal thought process present Results Reviewed Results Reviewed: Laboratory Tests 10/26/24 10/26/24 11:09 11:12 WBC 5.8 RBC 4.61 Hgb 13.2 Hct 40.3 MCV 87.4 MCH 28.6 MCHC 32.8 RDW 13.6 Plt Count 336 MPV 9.2 L Sodium 140 Potassium 4.4 Chloride 107 Carbon Dioxide 25 Anion Gap 12 BUN 12 Creatinine 0.74 Estimated GFR > 60 Fasting Glucose 86 Total Bilirubin 0.3 AST 20 ALT 20 Alkaline Phosphatase 57 Total Protein 7.9 Albumin 5.0 Triglycerides 60 Cholesterol 166 LDL Cholesterol, Calc 88 HDL Cholesterol 66 25-OH Vitamin D Total 38.6 TSH 0.81 Urine Color Yellow Urine Appearance Clear Urine pH 6.0 Ur Specific Prentice <= 1.005 Urine Protein Negative Urine Glucose (UA) Negative Urine Ketones Negative Urine Blood Negative Urine Nitrite Negative Ur Leukocyte Esterase Negative Coding Level of Care Code Est Pt Prev Care 18-39y(85309) Diagnoses Annual physical exam Z00.00 Attention deficit hyperactivity disorder (ADHD), unspecified ADHD type F90.9 Attention deficit-hyperactivity disorder type: unspecified Bipolar 2 disorder F31.81 Right lower quadrant abdominal pain R10.31 Abdominal location: right lower quadrant Slow transit constipation K59.01 Constipation type: slow transit constipation Encounter for gynecological examination without abnormal finding Z01.419 Gynecological examination findings: abnormal findings ABSENT Family history of skin cancer Z80.8 Time Spent (min) 38 Assessment & Plan Assessment & Plan (1) Annual physical exam: Code(s): Z00.00 - Encounter for general adult medical examination without abnormal findings Category: Medical Plan: Preventative guidelines and recent labs reviewed with the patient (2) ADHD: Code(s): F90.9 - Attention-deficit hyperactivity disorder, unspecified type Category: Medical Qualifiers: Attention deficit-hyperactivity disorder type: unspecified Qualified Code(s): F90.9 - Attention-deficit hyperactivity disorder, unspecified type Plan: The patient reports that she is actively looking for psychiatrist. She is currently awaiting for a return call. She is also looking of OCD group to be a part of. (3) Bipolar 2 disorder: Code(s): F31.81 - Bipolar II disorder Category: Medical Plan: The patient reports that she used to be on lamotrigine 100mg daily and was able to be successfully weaned off this medication. (4) Abdominal pain: Code(s): R10.9 - Unspecified abdominal pain Category: Medical Qualifiers: Abdominal location: right lower quadrant Qualified Code(s): R10.31 - Right lower quadrant pain Plan: Patient reports that pain started after her IUD was removed. Reports a KUB showed stool burden due to low transit and it was suspected that this, plus possibly scar tissue from the IUD removal was causing her pain in the right lower abdomen. KUB done on 10/26/2024 was unremarkable. Patient was seen by GI; she is currently following the FODMAP diet and her symptoms have improved significantly. The patient was also referred to OBGYN and she is waiting to be connected with them. (5) Constipation: Code(s): K59.00 - Constipation, unspecified Category: Medical Qualifiers: Constipation type: slow transit constipation Qualified Code(s): K59.01 - Slow transit constipation Plan: The patient reports that this has been better. She reports using miralax daily with positive effect (6) Routine gynecological examination: Code(s): Z01.419 - Encounter for gynecological examination (general) (routine) without abnormal findings Category: Medical Qualifiers: Gynecological examination findings: abnormal findings ABSENT Qualified Code(s): Z01.419 - Encounter for gynecological examination (general) (routine) without abnormal findings Plan: OBGYN referral was already placed and the patient is waiting to be connected. (7) Family history of skin cancer: Code(s): Z80.8 - Family history of malignant neoplasm of other organs or systems Category: Medical Plan: Dermatology referral was placed and she has an upcoming appointment Orders: Orders Complete Blood Count Auto Diff 1 Year . - Bipolar II disorder, F90.9 - Attention-deficit hyperactivity disorder, unspecified type, Z00.00 - Encounter for general adult medical examination without abnormal findings TSH reflex Free T4 1 Year . - Bipolar II disorder, F90.9 - Attention- deficit hyperactivity disorder, unspecified type, Z00.00 - Encounter for general adult medical examination without abnormal findings Vitamin D 25-OH Total 1 Year F3.81 - Bipolar II disorder, F90.9 - Attention- deficit hyperactivity disorder, unspecified type, Z00.00 - Encounter for general adult medical examination without abnormal findings Comprehensive [place]. Panel Fast 1 Year . - Bipolar II disorder, F90.9 - Attention-deficit hyperactivity disorder, unspecified type, Z00.00 - Encounter for general adult medical examination without abnormal findings Lipid Panel 1 Year .81 - Bipolar II disorder, F90.9 - Attention-deficit hyperactivity disorder, unspecified type, Z00.00 - Encounter for general adult medical examination without abnormal findings UA CC w/rflx Micro + Cult 1 Year F3.81 - Bipolar II disorder, F90.9 - Attention-deficit hyperactivity disorder, unspecified type, Z00.00 - Encounter f or general adult medical examination without abnormal findings
--- OUTSIDE RECORDS SUMMARY | 2024-11-27 15:56 | XMS_ITS | Clinical Summary ---
Author Organization [facility] Address [address] [place] [address] Care Team Providers Care Psychiatry Physician Name Role Phone Unavailable Primary Care Provider [...] 2009 Pap Smear 2009 Syphilis Screening 04/12/2020 [id number] ( season) 2023 Alcohol and Drug Screen [...] Yadav Relation to Subscriber:Self Name:Lyn Yadav Payer ID:[id number] Group ID:[id number] Type:Medicaid non-[place]P Address: [facility] [address] [place] [address]
--- OUTSIDE RECORDS SUMMARY | 2024-11-27 15:56 | XMS_ITS | Encounter Summary ---
Author Organization [facility] Address [address] [place] [id number] Phone Care Team Providers Care Hydro Electric Station Operator Name Role Phone Pcp, Unknown Primary Care Provider Unavailabl Vadim Tubbs PRINTING ROLLER POLISHER Primary Care Provider Pcp, Unknown Unavailable Unavailable Encounter Details Date Type Department Care Team (Late st Contact Info) Description 04/01/2024 Procedure Pass [facility], Ct Scan - [address] [address] Social History Tobacco Use Types Packs/Day Years [...] 04/01/2024 5:20 PM Kim Mcgee, BENJAMÍN * [place] Suicide Severity Rating Scale (Screener/Recent Self-Report) Question [...] on filedocumented in this encounter Care Teams Hydro Electric Station Operator Relationship Specialty Start Date End Date Pcp, Unknown PCP - General 04/01/24 10/22/24 Vadim Nielsen NP [address] [place] [address] [address] [place] [address] PCP - General Nurse Practitioner 10/23/24 Pcp, Unknown 10/23/24 documented as of this encounter Additional Source Comments The information contained in this document represents components of the legal health record. It is not the complete legal health record.[facility]
== END 2024-11-27 15:38 | disposition home or self-care (01) ==
LOC: HO.HMCH 14:34
DX: Z00.00 Encounter for general adult medical examination without abnormal findings (principal); F90.9 Attention-deficit hyperactivity disorder, unspecified type; F31.81 Bipolar II disorder; R10.31 Right lower quadrant pain; K59.01 Slow transit constipation; Z01.419 Encounter for gynecological examination (general) (routine) without abnormal findings; Z80.8 Family history of malignant neoplasm of other organs or systems

== ENCOUNTER 2025-01-23 13:28 | Outpatient (AMB) | payer OTHER, SELFPAY ==
--- NOTE | 2025-01-23 13:30 | A.OFFVIS_ITS ---
Vital Signs 01/23/25 13:36 Height 5 ft 4 in Weight 133 lb 6 oz BMI 22.9 Intake Visit Reasons: unspecified hemorrhoids Intake Note: This patient presents for an assessment for hemorrhoids. Pt c/o; unable to sit for prolong perioids of time, reports no rectal bleeding at this time. Cad Drafter Required: No Accompanied by: Self / Same As Patient Allergies Penicillins Allergy (Unknown, Verified 01/23/25 13:37) Hives Sulfa (Sulfonamide Antibiotics) Allergy (Unknown, Verified 01/23/25 13:37) Hives Medication List - Last Reconciled 01/23/25 by Gurpreet Lutz MD atomoxetine 25 mg PO DAILY hydrocortisone 2.5% appl topical DAILY semaglutide 0.25 mg subcut QWEEK simethicone (Gas Relief (simethicone)) 125 mg PO BID-TID PRN HPI HPI unspecified hemorrhoids: Details: 34-year-old female referred for hemorrhoid issues. She says that she has had what she describes this hemorrhoids swelling periodically for the past year. She says she really does not have pain but she just feels that the hemorrhoids are kind of swollen inside her anus. She denies any bleeding. She does have a history of IBS and has occasional diarrhea and constipation. She says that this has actually improved with her being on a FODMAP diet. She says she is healthy overall. FORMERLY [facility], 1928–1983 Medical History Internal and external hemorrhoids without complication PMDD (premenstrual dysphoric disorder) Anorexia Bulimia Bipolar 2 disorder Surgical History [place] teeth extracted No pertinent past surgical history Family History Mother Lymphoma Thyroid cancer Skin cancer Other FH: mental illness FHx: obesity FHx: type 2 diabetes mellitus Family history of substance abuse Social History Household Members: Significant Other Housing: Apartment Alcohol intake: never Patient Tobacco Use Status: Never used Tobacco e-Cigarette/Vaping Use: Currently Using Substance Use Type: Marijuana service: No Current occupational status: unemployed Cognitive needs: No Hearing needs: No Vision needs: No Female Reproductive History Menstrual Age of Menarche: 11 Review of Systems Const Denies chills and Denies fever(s) Card Denies chest pain, Denies dyspnea and Denies dyspnea on exertion Resp Denies cough, Denies dyspnea and Denies dyspnea on exertion GI Denies hematochezia and Denies change in bowel habits Denies hematuria Musc Denies back pain and Denies limited range of motion Neuro Denies focal weakness and Denies convulsions Psych Denies depression and Denies mood swings Physical Exam Vital Signs: BMI result Body Mass Index 22.9 Const General: comfortable and no acute distress Orientation/consciousness: patient oriented x3 Neck Neck: Yes no lymphadenopathy Resp Auscultation: clear to auscultation bilaterally Cardio Rhythm: regular rhythm GI Other: Rectal exam shows no obvious external hemorrhoids Palpation (GI): Soft to palpation, nontender and no guarding Neuro General: patient oriented x3 Office Procedures Anoscopy She was in kneeling june-knife position. The anoscope was gently inserted. A full examination of the entire anal canal was done. There was note of small mixed hemorrhoidal column, internal external on the left. There were no lesions seen. There was no bleeding or ulceration. There was no fissure. There was good sphincter tone. There was no induration on digital exam. [id number] Assessment & Plan Assessment & Plan (1) Internal and external hemorrhoids without complication: Code(s): K64.4 - Residual hemorrhoidal skin tags; K64.8 - Other hemorrhoids Category: Medical Plan: She has internal and external hemorrhoids which do not appeared to be bulky in size. I would not recommend proceeding with hemorrhoidectomy at this time. She has minimal symptoms. I explained to her that it would be best to control her symptoms as these definitely will aggravate her hemorrhoid symptoms I can see her in the office again down the line on a p.r.n. basis. Coding Level of Care Code New Pt Level 3 (90310) Diagnoses Internal and external hemorrhoids without complication K64.4; K64.8 CPT Codes Details - CPT: 02169-[id number] ([id number])
[2025-01-23 13:36] VITALS: BMI 22.9
--- OUTSIDE RECORDS SUMMARY | 2025-01-23 17:10 | XMS_ITS | Clinical Summary ---
Author Organization [facility] Address [address] [place] [id number] Phone Care Team Providers Care Line Manager Name Role Phone Vadim Nielsen SHEET MUSIC SALESPERSON Primary Care Provider Pcp, Unknown Unavailable Unavailable Allergies Active Allergy Reactions Criticality Noted Date Comments Cephalosporins Rash High 09/03/2022 Penicillin Rash Low 09/03/2022 Penicillin G Hives,Rash High 09/03/2022 Penicillins 10/23/2024 Sulfa (Sulfonamide Antibiotics) Rash High 08/10 Sulfa (Sulfonamide Antibiotics) 10/09 Medications atomoxetine (STRATTERA) 25 MG capsule Active SEMAGLUTIDE ORAL Take by mouth. Activ e HYDROXYZINE HCL ORAL Take by mouth. Activ e hydrocortisone 2.5 % cream Apply topically 2 (two) times a day. 28 g Active Encounters Date Type Department Care Team Description 10/23/2024 12:20 PM EDT Office Visit [facility] [address] [address] Tom Calixto, BETZAIDA External hemorrhoids (Primary Dx) from Last 3 Months Social History Tobacco Use Types Packs/Day Years Used Date Smoking Tobacco: Never Smokeless Tobacco: Never Tobacco Cessation:Counseling Given: Not Answered Alcohol Use Standard Drinks/Week Comments Not Currently 0 (1 standard drink = 0.6 oz pur e alcohol) Education Answer Date Recorded Are you interested in more education? Not on arturo e 10/23/2024 Are you concerned about learning? Not on file 10/23/2024 No 10/23/2024 No 10/23/2024 Digital Access Answer Date Recorded No 10/23/2024 No 10/23/2024 Reliable internet access at home? Not on file 10/23/2024 Device with a working camera? Not on file Intimate Partner Violence Answer Date R ecorded [...] Orientation Queer 10/23/2024 3: 06 PM EDT Last Filed Vital Signs Vital Sign Reading Time Taken Comments Blood Pressure 95/63 10/23/2024 1:01 PM EDT Pulse 75 10/23/2024 1:01 PM EDT Temperature 36.3 C (97.3 F) 10/23/2024 1:01 PM EDT Respiratory Rate 16 10/23/2024 1:01 PM EDT Oxygen Saturation 97% 10/23/2024 1:01 PM EDT Inhaled Oxygen Concentration - - Weight 63.5 kg (140 lb) 10/23/2024 1:01 PM EDT Height 162.6 cm (5' 4 ) 10/23/2024 1:01 PM EDT Body Mass Index 24.03 10/23/2024 1:01 PM EDT Plan of Treatment Health Maintenance Due Date Last Done Comments Adult Td,Tdap Booster 1988 DEPRESSION SCREENING 2000 HEPATITIS C SCREENING 2006 HIV ONE-TIME SCREENING (18-6 5 YEARS) 2006 PAP SMEAR 2009 SMOKING STATUS SCREENING (On ce After 26 Yrs) 2014 INFLUENZA VACCINE (#1) 2024 COVID-19 VACCINE ( - 2024-2 6 season) 2024 HEPATITIS A VACCINES Aged Out No long er eligible based on patient's age to complete this topic HIB VACCINES Aged Out No longer eligi ble based on patient's age to complete this topic MENINGOCOCCAL VACCINES (ACWY) Aged Out No longer eligible based on patient's age to complete this topic MENINGOCOCCAL VACCINES (B) Aged Out N o longer eligible based on patient's age to complete this topic PNEUMOCOCCAL VACCINES (0-49 years) Aged Out No longer eligible based on patient's age to complete this topic Medical Devices Not on file Insurance Care Teams Line Manager Relationship Specialty Start Date End Date Vadim Nielsen NP [address] [place] [address] [place] [id number] PCP - General Nurse Practitioner 10/23/24 Pcp, Unknown 10/23/24 Additional Source Comments The information contained in this document represents components of the legal health record. It is not the complete legal health record.[facility]
--- OUTSIDE RECORDS SUMMARY | 2025-01-23 17:10 | XMS_ITS | Encounter Summary ---
Author Organization [facility] Address [address] [place] [phone] Phone Care Team Providers Care Flat Spring Assembler Name Role Phone Pcp, Unknown Primary Care Provider Unavailabl Vadim Tubbs FLIGHT OPERATIONS MANAGER Primary Care Provider Pcp, Unknown Unavailable Unavailable Encounter Details Date Type Department Care Team (Late st Contact Info) Description 04/01/2024 Procedure Pass [facility], Ct Scan - [address] [address] Social History Tobacco Use Types Packs/Day Years [...] 04/01/2024 5:20 PM Kim Mcgee, BENJAMÍN * [place] Suicide Severity Rating Scale (Screener/Recent Self-Report) Question [...] on filedocumented in this encounter Care Teams Flat Spring Assembler Relationship Specialty Start Date End Date Pcp, Unknown PCP - General 04/01/24 10/22/24 Vadim Nielsen NP [address] [place] [address] [address] [place] [address] PCP - General Nurse Practitioner 10/23/24 Pcp, Unknown 10/23/24 documented as of this encounter Additional Source Comments The information contained in this document represents components of the legal health record. It is not the complete legal health record.[facility]
== END 2025-01-23 14:37 | disposition home or self-care (01) ==
LOC: HO.HGS 13:29
PROVIDERS: Visit Provider Surgery
DX: K64.4 Residual hemorrhoidal skin tags (principal); K64.8 Other hemorrhoids
CPT/HCPCS: 46600; 99203

== ENCOUNTER → 2025-01-23 13:28 | Outpatient (BNVA) | payer OTHER, SELFPAY | PROVIDERS: Visit Provider Surgery | DX: K64.4 Residual hemorrhoidal skin tags (principal); K64.8 Other hemorrhoids | CPT/HCPCS: 46600 ==